=== PATIENT | female | born 1945 | race Caucasian/White ===

== ENCOUNTER 2018-02-02 10:52 | Outpatient (RCR) | payer MEDICARE, OTHER ==
[~2018-02-02 10:52] MED LIST: ALENDRONATE SOD35 MG; ASA81 MG; CALCIUM CITRAT200 MG PO; DESYREL300 MG; DITROPAN 5MG TAB5 MG; FLONASE16 GM; FOSAMAX70 MG PO; FUROSEMIDE20 MG PO; LEVOCETIRIZINE D5 MG; METHADONE10 MG; MIRAPEX PO; OMEPRAZOLE40 MG PO; OXYBUTYNIN CHLOR5 MG PO; PANTOPRAZOLE SO40 MG PO; POTASSIUM CITR10 MEQ PO; SUCRALFATE; TIZANIDINE HCL4 MG PO; TRAMADOL HCL PO; TRAZODONE HCL50 MG PO; Z METHOCARBAMOL; Z MIRAPEX; Z.0.DICYCLOMINE HCL2 PO; Z.0.GEMFIBROZIL600 M PO; Z.0.PROTONIX40 MG; Z.1.HYDROCODON-ACE1; Z.1.LEVOTHYROXINE100 PO; calci
== END 2018-02-03 ==
LOC: PT 10:52
PROVIDERS: ATTEND Specialist
DX: S80.02XD Contusion of left knee, subsequent encounter (principal); M25.562 Pain in left knee; M25.662 Stiffness of left knee, not elsewhere classified; R26.2 Difficulty in walking, not elsewhere classified; M62.81 Muscle weakness (generalized)
CPT/HCPCS: 97010; 97110 ×8; 97161; G8978; G8979

== ENCOUNTER 2018-02-16 11:00 | Outpatient (RCR) | payer MEDICARE, OTHER | END 2018-03-05 | LOC: PT 11:00 | PROVIDERS: ATTEND Specialist | DX: S80.02XD Contusion of left knee, subsequent encounter (principal); M25.562 Pain in left knee; M25.662 Stiffness of left knee, not elsewhere classified; M62.81 Muscle weakness (generalized); R26.2 Difficulty in walking, not elsewhere classified | CPT/HCPCS: 97110 ×6; G8978; G8979 ==

== ENCOUNTER 2018-04-19 12:20 | Outpatient (RCR) | payer MEDICARE, OTHER | END 2018-05-06 | LOC: PT 12:20 | PROVIDERS: ATTEND Specialist | DX: M25.562 Pain in left knee (principal) | CPT/HCPCS: 97110; 97161; G8978; G8979; G8980 ==

== ENCOUNTER → 2018-07-15 | Outpatient (CLI) | payer MEDICARE, OTHER ==
--- NOTE | 2018-07-15 13:11 | Diagnostic Imaging Report ---
Exam: Sacrum 2 views and AP pelvis one view History: Urgent incontinence Comparison: None. Findings: No fracture or malalignment. Bladder stimulator with the lead overlying the right S2 neuroforamen. 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 Mild left hip degenerative arthrosis. Impression: No acute osseous abnormality Right bladder stimulator Scattered degenerative arthrosis of the pelvis Signed by: Dr. Mansoor Coughlin M.D. on 07/15/2018 1:07 PM
== END ==
LOC: RAD 11:56
PROVIDERS: ATTEND Urology
DX: N39.41 Urge incontinence (principal); N39.3 Stress incontinence (female) (male)
CPT/HCPCS: 72170; 72220

== ENCOUNTER 2018-10-05 17:02 | Observation (INO) | payer MEDICARE, OTHER ==
[~2018-10-05] VITALS: Ht 160 cm; Wt 81.9 kg
--- OUTSIDE RECORDS SUMMARY | 2018-10-05 17:07 | XMS REPORT | Continuity of Care Document ---
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 replacement 2006, [facility] [place] Hammer toe operation<sup>22</sup> [id number] left foot, 2003, right foot, 2004 left foot, 2004 right foot. [facility] Hip joint operations<sup>23</sup> [id number] Total right hip replacement 2006, [facility] Hammer toe operation<sup>5</sup> [id number] 5left foot, 2004, right foot, 2004 left foot, 2004 right foot. [facility] Hip joint operations<sup>6</sup> [id number] 6Total right hip replacement 2006, [facility] Hammer toe operation<sup>22</sup> [id number] left foot, 2004, right foot, 2005 left foot, 2005 right foot. [facility] Hip joint operations<sup>23</sup> [id number] Total right hip replacement 2006, [facility]
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
--- OUTSIDE RECORDS SUMMARY | 2018-10-05 17:07 | XMS REPORT | CCD ---
Author Author Auto Generated Organization [facility] [place] Address Unknown Phone Unavailable Care Team Providers Care Child Care Supervisor Name Role Phone Samantha Dunn PP Silvino Morales CP Allergies, Adverse Reactions, Alerts Substance Reaction Status codeine Active Imitrex Active Levaquin Active Neurontin Active penicillin Active Reglan Active Soma Active sulfa drugs Active
--- OUTSIDE RECORDS SUMMARY | 2018-10-05 17:07 | XMS REPORT | CCD ---
Author Author Auto Generated Organization [facility] Address Unknown Phone Unavailable Care Team Providers Care Aml Analyst Name Role Phone Peter Moreland CP Samantha Dunn PP Allergies, Adverse Reactions, Alerts Substance Reaction Status codeine Active Imitrex Active Levaquin Active Neurontin Active penicillin Active Reglan Active Soma Active sulfa drugs Active
--- OUTSIDE RECORDS SUMMARY | 2018-10-05 17:07 | XMS REPORT | CCD ---
Author Author Auto Generated Organization [facility] Address Unknown Phone Unavailable Care Team Providers Care Prehemmer Name Role Phone Samantha Dunn PP Po [...] replacement8 2011 Anthony fundoplication 2001 Operation9 1988 Dxzfvjlfh64 2008 Fxxqribqr43 06/10/2012 00:00:00 Immvvqsvh71 2005 Ksvfdjujw64 1999 Uuqotbzfj91 1998 Gjsrakgse28 2009 Uoazgurox91 2009 Fvmvhxooh51 12/18/2010 00:00:00 Nvqkwsccu46 1999 Wctacgpui60 1970 Zexxvkcst03 2001 Xpfhqfajy51 05/27/2012 00:00:00 Kiufrtyoa79 1996 Pjvzuytie95 2005 1left hand 72666 C Section and lipoma right arm 3neck [...]
--- OUTSIDE RECORDS SUMMARY | 2018-10-05 17:07 | XMS REPORT | CCD ---
Author Author Auto Generated Organization [facility] Address Unknown Phone Unavailable Care Team Providers Care Dish Carrier Name Role Phone Samantha Dunn PP Po [...] replacement8 2011 Anthony fundoplication 2001 Operation9 1988 Wuyybegtm07 2008 Bjhnplpkv84 06/10/2012 00:00:00 Gyllbtkgk13 2005 Dgxipoama19 1999 Thaaifhis72 1998 Brtriubcd99 2009 Lnowjmqvq80 2009 Moqxtkimx20 12/18/2010 00:00:00 Vbkdxxspt85 1999 Mxuswujlq35 1970 Ypvuvxeqh90 2001 Hjwxmunyb30 05/27/2012 00:00:00 Hbozuaitq07 1996 Fvpywhcyn00 2005 1left hand 19317 C Section and lipoma right arm 3neck [...]
--- OUTSIDE RECORDS SUMMARY | 2018-10-05 17:07 | XMS REPORT | Clinical Summary ---
Author Author [facility] Organization [facility] Address Unknown Phone Unavailable Care Team Providers Care Airplane Engineer Name Role Phone Silvino Morales DO PCP Allergies Comments Active Allergy Reactions Severity Noted Date No steristrips Adhesive Tape-Silicones Rash Low 08/04/2018 Duloxetine Rash Low 08/04/2018 Sumatriptan Succinate Rash Low 08/04/2018 Levofloxacin Rash Low 08/04/2018 Pregabalin Rash Low 08/04/2018 Methadone Rash Low 08/04/2018 Polyethylene Glycol 3350 GI 08/04/2018 Intolerance Gabapentin Rash Low 08/04/2018 Penicillins Rash Low 08/04/2018 Carisoprodol Rash Low 08/04/2018 Sulfa (Sulfonamide Rash Low 08/04/2018 Antibiotics) Medications End Date Status Medication Sig Dispensed Refills Start Date Active levothyroxine (SYNTHROID, Take 112 mcg 1 LEVOXYL) 112 mcg tablet by mouth 8 daily. Active traZODone (DESYREL) 300 TAKE 1 3 MG tablet TABLET(S) BY 8 MOUTH AT BEDTIME Active rOPINIRole (REQUIP) 3 MG Take 3 mg by 5 tablet mouth 8 nightly. Active sucralfate (CARAFATE) 1 Take 1 g by 0 gram tablet mouth 4 (four) times a day. Active omeprazole (PriLOSEC) 40 Take 40 mg by 0 MG capsule mouth daily. Active rOPINIRole (REQUIP) 2 MG Take 2 mg by 0 tablet mouth daily before breakfast. Active dicyclomine (BENTYL) 20 Take 20 mg by 0 mg tablet mouth 4 (four) times a day. 2-4 daily Active iron, carbonyl, 45 mg Take 45 mg by 0 tablet mouth daily. Active Take 1 tablet 0 vit,[id number] 29 by mouth mg iron- 1 mg tablet per daily. tablet Active calcium citrate-vitamin Take 1 tablet 0 D3 (CITRACAL+D) 315-200 by mouth 2 mg-unit per tablet (two) times a day. Active aspirin (ECOTRIN) 81 MG Take 81 mg by 0 enteric coated tablet mouth daily. Active melatonin 10 mg tablet Take by 0 mouth. Active Problems Not on file Encounters Care Team Description Date Type Specialty Po Lugo MD Preop testing (Primary Dx) 08/04/2018 Pre-Admit Pre-Admission Testing Testing Appointment Po Lugo MD 08/04/2018 Hospital Radiology Encounter after 10/04/2017 Family History Medical History Relation Name Comments Heart attack Father Hypertension Father Stroke Father Arthritis Mother Hypertension Mother Relation Name Status Comments Father Mother Social History Date Tobacco Use Types Packs/Day Years Used Never Smoker Smokeless Tobacco: Never Used Alcohol Use Drinks/Week oz/Week Comments No Alcohol Habits Answer Date Recorded How often do you have a drink containing alcohol? Never 08/04/2018 How many drinks containing alcohol do you have on Not asked a typical day when you are drinking? How often do you have six or more drinks on one Not asked occasion? Sex Assigned at Date Recorded Not on file Industry Job Start Date Occupation Not on file Not on file Not on file Travel End Travel History Travel Start No recent travel history available. Last Filed Vital Signs Time Taken Vital Sign Reading 08/04/2018 12:22 PM HEAD UP OPERATOR HELPER Blood Pressure 124/66 08/04/2018 12:22 PM HEAD UP OPERATOR HELPER Pulse 56 08/04/2018 12:22 PM HEAD UP OPERATOR HELPER Temperature 36.6 C (97.9 F) 08/04/2018 12:22 PM HEAD UP OPERATOR HELPER Respiratory Rate 16 08/04/2018 12:22 PM HEAD UP OPERATOR HELPER Oxygen Saturation 97% - Inhaled Oxygen - Concentration 08/04/2018 12:22 PM HEAD UP OPERATOR HELPER Weight 77.7 kg (171 lb 3 oz) 08/04/2018 12:22 PM HEAD UP OPERATOR HELPER Height 161.3 cm (5' 3.5") 08/04/2018 12:22 PM HEAD UP OPERATOR HELPER Body Mass Index 29.85 Plan of Treatment Health Maintenance Due Date Last Done Comments BREAST CANCER SCREENING 1993 COLON CANCER SCREENING 1993 SHINGLES VACCINES (1 of 1993 2) PNEUMOCOCCAL 01/06/2008 POLYSACCHARIDE VACCINE AGE 65 AND OVER PNEUMOCOCCAL-13 01/06/2008 INFLUENZA VACCINE 04/06/2018 Procedures Comments Procedure Name Priority Date/Time Associated Diagnosis XR CHEST 2 VW Routine 08/04/2018 Preop testing 1:27 PM HEAD UP OPERATOR HELPER ECG 12-LEAD Routine 08/04/2018 Preop testing 1:02 PM HEAD UP OPERATOR HELPER ESTIMATED GFR Routine 08/04/2018 12:55 PM HEAD UP OPERATOR HELPER URINALYSIS SCREEN AND Routine 08/04/2018 Preop testing MICROSCOPY, WITH REFLEX 12:55 PM HEAD UP OPERATOR HELPER TO CULTURE PARTIAL THROMBOPLASTIN Routine 08/04/2018 Preop testing TIME (PTT) 12:55 PM HEAD UP OPERATOR HELPER PROTHROMBIN TIME WITH INR Routine 08/04/2018 Preop testing 12:55 PM HEAD UP OPERATOR HELPER BASIC METABOLIC PANEL Routine 08/04/2018 Preop testing 12:55 PM HEAD UP OPERATOR HELPER HC COMPLETE BLD COUNT Routine 08/04/2018 Preop testing W/AUTO DIFF 12:55 PM HEAD UP OPERATOR HELPER GRAM STAIN Routine 08/04/2018 12:06 PM HEAD UP OPERATOR HELPER URINE CULTURE Routine 08/04/2018 12:06 PM HEAD UP OPERATOR HELPER after 10/04/2017 Results * XR Chest 2 Vw (08/04/2018 1:27 PM HEAD UP OPERATOR HELPER) Narrative Performed At EXAMINATION:XR CHEST 2 VW [facility] CLINICAL HISTORY:Z01.818 Encounter for other preprocedural examination, preop COMPARISON:December 23, 2011 FINDINGS: The heart size is mildly enlarged. There is an intraspinal electrode projecting over the mid to lower thoracic spine new since previous. There is mild pleural and parenchymal scarring at the left lung base and in the left midlung. These findings are stable since the prior study. There are no acute findings visualized. Mild scoliosis of the thoracic spine is present. Small metallic fragments in the left chest wall are noted. IMPRESSION: 1. No acute findings are visualized. Chronic scarring in the left is noted. 2. Borderline to mild cardiomegaly [id number] Procedure Note Hm Interface, Radiology Results Incoming - 08/04/2018 1:58 PM HEAD UP OPERATOR HELPER EXAMINATION: XR CHEST 2 VW CLINICAL HISTORY: Z01.818 Encounter for other preprocedural examination, preop COMPARISON: December 23, 2011 FINDINGS: The heart size is mildly enlarged. There is an intraspinal electrode projecting over the mid to lower thoracic spine new since previous. There is mild pleural and parenchymal scarring at the left lung base and in the left midlung. These findings are stable since the prior study. There are no acute findings visualized. Mild scoliosis of the thoracic spine is present. Small metallic fragments in the left chest wall are noted. IMPRESSION: 1. No acute findings are visualized. Chronic scarring in the left is noted. 2. Borderline to mild cardiomegaly [id number] Performing Organization Address [facility] Phone Number [employer] [address] [place] [address] * ECG 12 lead (08/04/2018 1:02 PM HEAD UP OPERATOR HELPER) Ventricular rate 64 [facility] Atrial rate 64 [facility] CO interval 140 [facility] QRSD interval 74 [facility] QT interval 404 [facility] QTC interval 416 [facility] P axis 1 81 [facility] QRS axis 1 2 [facility] T wave axis 42 [facility] EKG impression Normal sinus rhythm-Cannot [facility] rule out Anterior infarct , age undetermined-Abnormal ECG-In automated comparison with ECG of 23-DEC-2011 12:05,-No significant change was found- Narrative Performed At Performing Organization Address [facility] Services[facility] Phone Number [employer] [address] [place] [address] * Urinalysis screen and microscopy, with reflex to culture (08/04/2018 12:55 PM HEAD UP OPERATOR HELPER) Specimen site Clean catch [facility] Color, UA Yellow [facility] Appearance, UA Slightly-Cloudy [facility] Specific gravity, UA 1.024 1.001 - 1.035 [facility] pH, UA 5.0 5.0 - 8.5 [facility] Protein, UA Negative Negative [facility] Glucose, UA Negative Negative [facility] Ketones, UA Negative Negative [facility] Bilirubin, UA Negative Negative [facility] Blood, UA Negative Negative [facility] Nitrite, UA Negative Negative [facility] Urobilinogen, UA 2.0 (A) <2.0 [facility] Leukocyte esterase, UA Trace (A) Negative [facility] Epithelial cells, UA Few /HPF [facility] WBC, UA 0-5 0 - 4 /HPF [facility] RBC, UA 0-5 0 - 5 /HPF [facility] Bacteria, UA Trace None seen [facility] Yeast, UA None seen [facility] Yeast with pseudohyphae, None seen [facility] Calcium oxalate crystals, Many [facility] Specimen Urine Performing Organization Address [facility] Phone Number [address] [place] [address] PATHOLOGY AND GENOMIC MEDICINE [address] * Estimated GFR (08/04/2018 12:55 PM HEAD UP OPERATOR HELPER) Estimated GFR 62 mL/min/1.73 m2 [facility] Comment: [facility] CatergoryUnitsInte rpretation G1 >=90 Normal or high G2 60-89Mildly decreased P6y85-93 Mildly to moderately decreased G1j95-24 Moderately to severely decreased G4 15-29Severely decreased G5 <15Kidney failure The eGFR was calculated using the Chronic Kidney Disease Epidemiology Collaboration (CKD-EPI) equation. Interpretation is based on recommendations of the National Kidney Foundation-Kidney Disease Outcomes Quality Initiative (NKF-KDOQI) published in 2014. Specimen Plasma specimen Performing Organization Address [facility] Phone Number [address] [place] [address] PATHOLOGY AND GENOMIC MEDICINE [address] * Partial thromboplastin time, activated (08/04/2018 12:55 PM HEAD UP OPERATOR HELPER) PTT 28.5 23.0 - 36.0 sec [facility] Comment: [facility] PTT therapeutic range for unfractionated heparin is 61.0-112.0 seconds which corresponds to Anti-Xa 0.3-0.7 U/ml. Specimen Blood Performing Organization Address City/[facility]/Zipcode Phone Number [address] [place] [address] PATHOLOGY AND GENOMIC MEDICINE [address] * Prothrombin time with INR (08/04/2018 12:55 PM HEAD UP OPERATOR HELPER) Prothrombin time 12.6 11.5 - 14.5 sec [facility] INR 1.0 [facility] Comment: [facility] The International Normalized Ratio (INR) is a therapeutic monitoring tool for patients who are stable on oral anticoagulant therapy. An INR of 2.0-3.0 is suggested for deep vein thrombosis/pulmonary embolism. Specimen Blood Performing Organization Address [facility] Phone Number [address] [place] [address] PATHOLOGY AND GENOMIC MEDICINE [address] * CBC with platelet and differential (08/04/2018 12:55 PM HEAD UP OPERATOR HELPER) WBC 6.68 4.50 - 11.00 k/uL [facility] RBC 4.13 (L) 4.20 - 5.50 m/uL [facility] HGB 12.6 12.0 - 16.0 g/dL [facility] HCT 38.8 37.0 - 47.0 % [facility] MCV 93.9 82.0 - 100.0 fL [facility] MCH 30.5 27.0 - 34.0 pg [facility] MCHC 32.5 31.0 - 37.0 g/dL [facility] RDW - SD 50.2 37.0 - 55.0 fL [facility] MPV 10.5 8.8 - 13.2 fL [facility] Platelet count 285 150 - 400 k/uL [facility] Nucleated RBC 0.00 /100 WBC [facility] Neutrophils 54.5 39.0 - 69.0 % [facility] Lymphocytes 35.9 25.0 - 45.0 % [facility] Monocytes 7.6 0.0 - 10.0 % [facility] Eosinophils 1.3 0.0 - 5.0 % [facility] Basophils 0.6 0.0 - 1.0 % [facility] Specimen Blood Performing Organization Address [facility] Phone Number [address] [place] [address] PATHOLOGY AND GENOMIC MEDICINE [address] * Basic metabolic panel (08/04/2018 12:55 PM HEAD UP OPERATOR HELPER) Sodium 138 135 - 148 mEq/L [facility] Potassium 4.1 3.5 - 5.0 mEq/L [facility] Chloride 100 98 - 112 mEq/L [facility] CO2 28 24 - 31 mEq/L [facility] Anion gap 10@ANIO 7 - 15 mEq/L [facility] BUN 18 8 - 23 mg/dL [facility] Creatinine 0.90 0.50 - 0.90 mg/dL [facility] Glucose 85 65 - 99 mg/dL [facility] Calcium 10.2 8.8 - 10.2 mg/dL [facility] Specimen Plasma specimen Performing Organization Address [facility] Phone Number [address] [place] [address] PATHOLOGY AND GENOMIC MEDICINE [address] * Gram stain (08/04/2018 12:06 PM HEAD UP OPERATOR HELPER) Gram stain result No WBC's or organisms seen. [facility] Comment: HOSPITAL Specimen Information Specimen Source: Urine Specimen Site: Clean catch Specimen Urine Performing Organization Address City/State/Zipcode Phone Number [facility] [address] [place] [address] PATHOLOGY AND GENOMIC MEDICINE [address] * Urine culture (08/04/2018 12:06 PM HEAD UP OPERATOR HELPER) Urine culture isolate Mixed kwame 10-5 col/cc [facility] Comment: HOSPITAL Specimen Information Specimen Source: Urine Specimen Site: Clean catch Specimen Urine Performing Organization Address City/State/Zipcode Phone Number [facility] OF [address] [place] [address] PATHOLOGY AND GENOMIC MEDICINE [facility] [address] [place] [address] HOSPITAL after 10/04/2017 Insurance Payer Benefit Subscriber ID Type Phone Address Plan / Group AETNA MEDICARE AETNA xxxxxxxx HMO MEDICARE HMO/PPO [facility] Advance Directives Patient has advance care planning documents on file. For more information, chloe torres contact: Evan Amaya [address] [place] [address]
--- OUTSIDE RECORDS SUMMARY | 2018-10-05 17:07 | XMS REPORT | CCD ---
Author Author Auto Generated Organization [facility] Outpatient Imaging - [place] Address Unknown Phone Unavailable Care Team Providers Care Traffic Chief Name Role Phone Samantha Dunn PP Silvino Morales CP Allergies, Adverse Reactions, Alerts Substance Reaction Status codeine Active Imitrex Active Levaquin Active Neurontin Active penicillin Active Reglan Active Soma Active sulfa drugs Active
--- OUTSIDE RECORDS SUMMARY | 2018-10-05 17:07 | XMS REPORT | CCD ---
Author Author Auto Generated Organization [facility] Outpatient Imaging - [place] Address Unknown Phone Unavailable Care Team Providers Care Management Advisor Name Role Phone Peter Moreland CP Samantha Dunn PP Allergies, Adverse Reactions, Alerts Substance Reaction Status codeine Active Imitrex Active Levaquin Active Neurontin Active penicillin Active Reglan Active Soma Active sulfa drugs Active
--- OUTSIDE RECORDS SUMMARY | 2018-10-05 17:07 | XMS REPORT | CCD ---
Author Author Auto Generated Organization [facility] Outpatient Imaging - [place] Address Unknown Phone Unavailable Care Team Providers Care Detention Attendant Name Role Phone Samantha Dunn PP Silvino Morales CP Allergies, Adverse Reactions, Alerts Substance Reaction Status codeine Active Imitrex Active Levaquin Active Neurontin Active penicillin Active Reglan Active Soma Active sulfa drugs Active
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
--- OUTSIDE RECORDS SUMMARY | 2018-10-05 17:08 | XMS REPORT | Summary of Care ---
Author Organization Unknown Address Unknown Phone Unavailable Care Team Providers Care Dry Cleaning Teacher Name Role Phone Samantha Dunn PCP Encounter [facility] Lylar_ashlie([facility]) [id number] Date(s): 06/07/14 - 06/07/14 [facility] Outpatient Imaging [address] [address] [place] Discharge Disposition: Home Physician Attending: Ladarius Schwarz MD Reason for Visit 789.0 - ABDOMINAL PAIN Problem List Condition Effective Dates Status Health Status Informant Back pain(Confirmed) Active Diverticulosis of Resolved colon(Confirmed) Dysphagia(Confirmed) Active GERD - Active Gastro-esophageal reflux disease(Confirmed) Allergies, Adverse Reactions, Alerts Substance Reaction Severity Status baclofen Active codeine Active Imitrex Active Levaquin Active Neurontin Active penicillin Active Reglan Active Soma Active sulfa drugs Active Medications No data available for this section Medications Administered During Your Visit No data available for this section Immunizations No data available for this section
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
--- OUTSIDE RECORDS SUMMARY | 2018-10-05 17:08 | XMS REPORT | Summary of Care ---
Author Organization Unknown Address Unknown Phone Unavailable Care Team Providers Care Circular Stuffer Name Role Phone Samantha Dunn PCP Encounter HQ Lylar_ashlie([facility]) [phone] Date(s): 12/13/13 - 12/13/13 [facility] Outpatient Imaging [address] [address]- [facility] Discharge Disposition: Home Physician Attending: Ladarius Schwarz Reason for Visit 722.81 - POSTLAMINECT SY Problem List Condition Effective Dates Status Health [...]
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
--- OUTSIDE RECORDS SUMMARY | 2018-10-05 17:08 | XMS REPORT | CCD ---
Author Author Auto [employer] Organization [facility] Address Unknown Phone Unavailable Care Team Providers Care Position Clerk Name Role Phone Samantha Dunn PP Po [...] replacement8 2011 Anthony fundoplication 2001 Operation9 1988 Zjtvquigs08 2008 Xltbikowu75 06/10/2012 00:00:00 Rystyhala87 2005 Fugxsorrx50 1999 Zftfdujuu43 1998 Nffubcmrr15 2009 Qgjnpffaw20 2009 Vqrbtnxlp13 12/18/2010 00:00:00 Dkzrzoauk34 1999 Xhfeswlrh07 1970 Bayvjfeus63 2001 Rclgumaxm07 05/27/2012 00:00:00 Lxommmmzd15 1996 Xhvuccido96 2005 1left hand 26791 C Section and lipoma right arm 3neck [...]
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
--- OUTSIDE RECORDS SUMMARY | 2018-10-05 17:09 | XMS REPORT ---
Author [facility] Address Unknown Phone Unavailable Care Team Providers Care Form Grader Operator Name Role Phone BOUCHRA BRADSHAW Unavailable Unavailable Payers Payer Name Policy Type Policy Number Effective Date Expiration Date Problems This patient has no known problems. Allergies, Adverse Reactions, Alerts Allergy Name Allergy Type Status Severity Reaction(s) Onset Date Inactive Date Treating Clinician Comments Penicillins DA Active [facility] 2017-11-20 00:00:00 Sulfa (Sulfonamide Antibiotics) DA Active NH 2017-11-20 00:00:00 codeine DA Active NH 2017-11-20 00:00:00 carisoprodol DA Active NH 2017-11-20 00:00:00 baclofen DA Active NH 2017-11-20 00:00:00 adhesive DA Active NH 2017-11-20 00:00:00 sumatriptan DA Active NH 2017-11-20 00:00:00 gabapentin DA Active NH 2017-11-20 00:00:00 methadone DA Active U 2017-11-20 00:00:00 levofloxacin DA Active U 2017-11-20 00:00:00 polyethylene glycol 3350 DA Active NH 2017-11-20 00:00:00 pregabalin DA Active NH 2017-11-20 00:00:00 Medications This patient has no known medications. Results Test Description Test Time Test Comments Text Results Atomic Results Result Comments PELVIS AP 1-2 VIEWS 2018-07-15 13:04:[address] [address] Patient Name: JOSEPH SAMANIEGO MR #: [id number] : 1945 Age/Sex: 73/F Req #: [id number] Adm Physician: Ordered by: BOUCHRA BRADSHAW MD Report #: [id number] Location: RAD Room/Bed: Procedure: [id number] DX/PELVIS AP 1-2 VIEWS Exam Date: 07/15/18 Exam Time: 1224 REPORT STATUS: Signed Exam: Sacrum 2 views and AP pelvis one view Hi story: Urgent incontinence Comparison: None. Findings: No fracture or malalignment. Bladder stimulator with the lead overlying the right S2 neuroforamen. 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 Mild left hip degenerative arthrosis. Impression: No acute osseous abnormality Right bladder stimulator Scattered degenerative arthrosis of the pelvis Signed by: Dr. Lady Casanova M.D. on 07/15/2018 1:07 PM Dictated By: LADY CASANOVA MD Juany ctronically Signed By: LADY CASANOVA MD on 07/15/18 1307 Transcribed By: YESSI on 07/15/18 1307 COPY TO: BOUCHRA BRADSHAW MD SACRUM X-RAY 2018-07-15 13:04:00 [place] [address] Patient Name: JOSEPH SAMANIEGO MR #: [id number] : 1945 Age/Sex: 73/F Req #: [id number] Adm Physician: Ordered by: BOUCHRA BRADSHAW MD Report #: [id number] Location: RAD Room/Bed: Procedure: [id number] DX/SACRUM X-RAY Exam Date: 07/15/18 Exam Time: 1224 REPORT STATUS: Signed Exam: Sacrum 2 views and AP pelvis one view History: Urgent incontinence Comparison: None. Findings: No fracture or malalignment. Bladder stimulator with the lead overlying the right S2 neuroforamen. 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 Mild left hip degenerative arthrosis. Impression: No acute osseous abnormality Right bladder stimulator Scattered degenerative arthrosis of the pelvis Signed by: Dr. Lady Casanova M.D. on 07/15/2018 1:07 PM Dictated By: LADY CASANOVA MD 1309 Transcribed By: YESSI on 07/15/18 1304 COPY TO: BOUCHRA BRADSHAW MD
[2018-10-05] MEDS ORDERED: ENOXAPARIN INJ 80 MG/0.8 ML SYR SC ONE (18:45)
[2018-10-05] MEDS ORDERED: CYCLOBENZAPRINE10 MG PO (18:47)
[2018-10-05] MEDS ORDERED: TRAZODONE HCL300 MG PO (18:47)
[2018-10-05] MEDS ORDERED: DICYCLOMINE HCL20 MG PO (18:47)
[2018-10-05] MEDS ORDERED: SUCRALFATE1 GM PO (18:47)
[2018-10-05] MEDS ORDERED: ROPINIROLE HCL3 MG PO (18:47)
--- NOTE | 2018-10-05 18:48 | Diagnostic Imaging Report ---
EXAM: XR CHEST 1 VIEW DATE: 10/05/2018 5:58 PM INDICATION: Pulmonary embolus COMPARISON: None FINDINGS: Lines and Tubes: None Heart and Mediastinum: No acute cardiomediastinal findings. Lungs and Pleura: No significant pleural effusion, pneumothorax, or focal consolidation. Bones and Soft Tissues: Spinal stimulator wires. IMPRESSION: 1. No acute cardiopulmonary findings. Signed by: Dr. Johnnie Leung MD on 10/05/2018 6:45 PM
[2018-10-05] MEDS ORDERED: ASPIRIN 81 MG CHEW TAB PO ONE (19:00)
[2018-10-05 19:02] LABS: BASOPHILS % 0.6 % (0.0-1.0); EOSINOPHILS # (AUTO) 0.1 (0.0-0.4); EOSINOPHILS % 1.5 % (0.0-6.0); HEMATOCRIT 35.7 % (34.2-44.1); HEMOGLOBIN 11.6 g/dL (12.0-16.0); LYMPHOCYTES # (AUTO) 2.3 (1.0-3.2); LYMPHOCYTES % 34.4 % (18.0-39.1); MEAN CORPUSCULAR HEMOGLOBIN 31.1 pg (28-32); MEAN CORPUSCULAR HGB CONC 32.5 g/dL (31-35); MEAN CORPUSCULAR VOLUME 95.7 fL (81-99); MONOCYTES # (AUTO) 0.5 (0.2-0.8); MONOCYTES % 7.9 % (4.4-11.3); NEUTROPHILS # (AUTO) 3.7 (2.1-6.9); NEUTROPHILS % 55.3 % (38.7-80.0); PLATELET COUNT 252 x10e3/uL (140-360); RED BLOOD COUNT 3.73 x10e6/uL (3.6-5.1); RED CELL DISTRIBUTION WIDTH 15.7 % (11.7-14.4)
--- OUTSIDE RECORDS SUMMARY | 2018-10-05 19:03 | XMS REPORT | Clinical Summary ---
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 Active Take 1 tablet 0 vit,[id number] 29 by mouth mg iron- 1 mg [...] Taken Vital Sign Reading 08/04/2018 12:22 PM ROUTE SALES REPRESENTATIVE Blood Pressure 124/66 08/04/2018 12:22 PM ROUTE SALES REPRESENTATIVE Pulse 56 08/04/2018 12:22 PM ROUTE SALES REPRESENTATIVE Temperature 36.6 C (97.9 F) 08/04/2018 12:22 PM ROUTE SALES REPRESENTATIVE Respiratory Rate 16 08/04/2018 12:22 PM ROUTE SALES REPRESENTATIVE Oxygen Saturation 97% - Inhaled Oxygen - Concentration 08/04/2018 12:22 PM ROUTE SALES REPRESENTATIVE Weight 77.7 kg (171 lb 3 oz) 08/04/2018 12:22 PM ROUTE SALES REPRESENTATIVE Height 161.3 cm (5' 3.5") 08/04/2018 12:22 PM ROUTE SALES REPRESENTATIVE Body Mass Index 29.85 Plan of Treatment Health Maintenance Due Date Last Done Comments BREAST CANCER SCREENING 1993 COLON CANCER SCREENING 1993 SHINGLES VACCINES (1 of 1993 2) PNEUMOCOCCAL 01/06/2008 POLYSACCHARIDE VACCINE AGE 65 AND OVER PNEUMOCOCCAL-13 01/06/2008 INFLUENZA VACCINE 04/06/2018 Procedures Comments Procedure Name Priority Date/Time Associated Diagnosis XR CHEST 2 VW Routine 08/04/2018 Preop testing 1:27 PM ROUTE SALES REPRESENTATIVE ECG 12-LEAD Routine 08/04/2018 Preop testing 1:02 PM ROUTE SALES REPRESENTATIVE ESTIMATED GFR Routine 08/04/2018 12:55 PM ROUTE SALES REPRESENTATIVE URINALYSIS SCREEN AND Routine 08/04/2018 Preop testing MICROSCOPY, WITH REFLEX 12:55 PM ROUTE SALES REPRESENTATIVE TO CULTURE PARTIAL THROMBOPLASTIN Routine 08/04/2018 Preop testing TIME (PTT) 12:55 PM ROUTE SALES REPRESENTATIVE PROTHROMBIN TIME WITH INR Routine 08/04/2018 Preop testing 12:55 PM ROUTE SALES REPRESENTATIVE BASIC METABOLIC PANEL Routine 08/04/2018 Preop testing 12:55 PM ROUTE SALES REPRESENTATIVE HC COMPLETE BLD COUNT Routine 08/04/2018 Preop testing W/AUTO DIFF 12:55 PM ROUTE SALES REPRESENTATIVE GRAM STAIN Routine 08/04/2018 12:06 PM ROUTE SALES REPRESENTATIVE URINE CULTURE Routine 08/04/2018 12:06 PM ROUTE SALES REPRESENTATIVE after 10/04/2017 Results * XR Chest 2 Vw (08/04/2018 1:27 PM ROUTE SALES REPRESENTATIVE) Narrative Performed At EXAMINATION:XR CHEST 2 VW [...] is noted. 2. Borderline to mild cardiomegaly [id number] Procedure Note Hm Interface, Radiology Results Incoming - 08/04/2018 1:58 PM ROUTE SALES REPRESENTATIVE EXAMINATION: XR CHEST 2 VW CLINICAL HISTORY: [...] is noted. 2. Borderline to mild cardiomegaly [id number] Performing Organization Address [facility] Cent[facility]ode Phone Number [employer] [address] [place] [address] * ECG 12 lead (08/04/2018 1:02 PM ROUTE SALES REPRESENTATIVE) Ventricular rate 64 [facility] Atrial rate 64 [facility] OR interval 140 [facility] QRSD interval 74 [...] found- Narrative Performed At Performing Organization Address [facility] Center[facility]n Phone Number [employer] [address] [place] [address] * Urinalysis screen and microscopy, with reflex to culture (08/04/2018 12:55 PM ROUTE SALES REPRESENTATIVE) Specimen site Clean catch [facility] Color, UA Yellow [facility] Appearance, UA Slightly-Cloudy [facility] Specific gravity, UA 1.024 1.001 - 1.035 [facility] pH, UA 5.0 5.0 - 8.5 [facility] Protein, UA Negative Negative [facility] Glucose, UA Negative Negative [facility] Ketones, UA Negative Negative [facility] Bilirubin, UA Negative Negative [facility] Blood, UA Negative Negative [facility] Nitrite, UA Negative Negative [facility] Urobilinogen, UA 2.0 (A) <2.0 [facility] Leukocyte esterase, UA Trace (A) Negative [facility] Epithelial cells, UA Few /HPF [facility] WBC, UA 0-5 0 - 4 /HPF [facility] RBC, UA 0-5 0 - 5 /HPF [facility] Bacteria, UA Trace None seen [facility] Yeast, UA None seen [facility] Yeast with pseudohyphae, None seen [facility] Calcium oxalate crystals, Many [facility] Specimen Urine Performing Organization Address [facility] Phone Number [address] [place] [address] PATHOLOGY AND GENOMIC MEDICINE [address] * Estimated GFR (08/04/2018 12:55 PM ROUTE SALES REPRESENTATIVE) Estimated GFR 62 mL/min/1.73 m2 [facility] Comment: [facility] CatergoryUnitsInte rpretation G1 >=90 Normal or high G2 60-89Mildly decreased [id number] Mildly to moderately decreased [id number] Moderately to severely decreased G4 15-29Severely decreased G5 <15Kidney failure The eGFR was calculated using the Chronic Kidney Disease Epidemiology Collaboration (CKD-EPI) equation. Interpretation is based on recommendations of the National Kidney Foundation-Kidney Disease Outcomes Quality Initiative (NKF-KDOQI) published in 2014. Specimen Plasma specimen Performing Organization Address [facility] Centercode Phone Number [address] [place] [address] PATHOLOGY AND GENOMIC MEDICINE [address] * Partial thromboplastin time, activated (08/04/2018 12:55 PM ROUTE SALES REPRESENTATIVE) PTT 28.5 23.0 - 36.0 sec [facility] Comment: [facility] PTT therapeutic range for unfractionated heparin is 61.0-112.0 seconds which corresponds to Anti-Xa 0.3-0.7 U/ml. Specimen Blood Performing Organization Address City/[facility]/Zipcode Phone Number [address] [place] [address] PATHOLOGY AND GENOMIC MEDICINE [address] * Prothrombin time with INR (08/04/2018 12:55 PM ROUTE SALES REPRESENTATIVE) Prothrombin time 12.6 11.5 - 14.5 sec [facility] INR 1.0 [facility] Comment: [facility] The International Normalized Ratio (INR) is a therapeutic monitoring tool for patients who are stable on oral anticoagulant therapy. An INR of 2.0-3.0 is suggested for deep vein thrombosis/pulmonary embolism. Specimen Blood Performing Organization Address [facility] Phone Number [address] [place] [address] PATHOLOGY AND GENOMIC MEDICINE [address] * CBC with platelet and differential (08/04/2018 12:55 PM ROUTE SALES REPRESENTATIVE) WBC 6.68 4.50 - 11.00 k/uL [facility] RBC 4.13 (L) 4.20 - 5.50 m/uL [facility] HGB 12.6 12.0 - 16.0 g/dL [facility] HCT 38.8 37.0 - 47.0 % [facility] MCV 93.9 82.0 - 100.0 fL [facility] MCH 30.5 27.0 - 34.0 pg [facility] MCHC 32.5 31.0 - 37.0 g/dL [facility] RDW - SD 50.2 37.0 - 55.0 fL [facility] MPV 10.5 8.8 - 13.2 fL [facility] Platelet count 285 150 - 400 k/uL [facility] Nucleated RBC 0.00 /100 WBC [facility] Neutrophils 54.5 39.0 - 69.0 % [facility] Lymphocytes 35.9 25.0 - 45.0 % [facility] Monocytes 7.6 0.0 - 10.0 % [facility] Eosinophils 1.3 0.0 - 5.0 % [facility] Basophils 0.6 0.0 - 1.0 % [facility] Specimen Blood Performing Organization Address [facility] Centercode Phone Number [address] [place] [address] PATHOLOGY AND GENOMIC MEDICINE [address] * Basic metabolic panel (08/04/2018 12:55 PM ROUTE SALES REPRESENTATIVE) Sodium 138 135 - 148 mEq/L [facility] Potassium 4.1 3.5 - 5.0 mEq/L [facility] Chloride 100 98 - 112 mEq/L [facility] CO2 28 24 - 31 mEq/L [facility] Anion gap 10@ANIO 7 - 15 mEq/L [facility] BUN 18 8 - 23 mg/dL [facility] Creatinine 0.90 0.50 - 0.90 mg/dL [facility] Glucose 85 65 - 99 mg/dL [facility] Calcium 10.2 8.8 - 10.2 mg/dL [facility] Specimen Plasma specimen Performing Organization Address [facility] Phone Number [address] [place] [address] PATHOLOGY AND GENOMIC MEDICINE [address] * Gram stain (08/04/2018 12:06 PM ROUTE SALES REPRESENTATIVE) Gram stain result No WBC's or organisms seen. [facility] Comment: HOSPITAL Specimen Information Specimen Source: Urine Specimen Site: Clean catch Specimen Urine Performing Organization Address City/State/Zipcode Phone Number [facility] DEPARTMENT [address] [place] [address] PATHOLOGY AND GENOMIC MEDICINE [address] * Urine culture (08/04/2018 12:06 PM ROUTE SALES REPRESENTATIVE) Urine culture isolate Mixed kwame 10-5 col/cc [facility] Comment: HOSPITAL Specimen Information Specimen Source: Urine Specimen Site: Clean catch Specimen Urine Performing Organization Address City/State/Zipcode Phone Number [facility] DEPARTMENT OF [address] [place] [address] PATHOLOGY AND GENOMIC MEDICINE [facility] [address] [place] [address] HOSPITAL after 10/04/2017 Insurance Payer Benefit Subscriber ID Type Phone Address Plan / Group AET[employer] MEDICARE AETNA xxxxxxxx HMO MEDICARE HMO/PPO [facility] Advance Directives Patient has advance care planning documents on file. For more information, chloe torres contact: Evan Amaya [address] [place] [address]
--- NOTE | 2018-10-05 19:10 | NUR ---
RECIEVED REPORT FROM FRIDA HARDEN DAY SHIFT NURSE.
[2018-10-05 19:16] LABS: INR 0.87; PROTHROMBIN TIME 12.6 seconds (11.9-14.5)
[2018-10-05 19:17] LABS: PARTIAL THROMBOPLASTIN TIME 29.1 seconds (23.8-35.5)
[2018-10-05 19:23] LABS: CREATINE KINASE 121 IU/L (29-168)
[2018-10-05 19:25] LABS: ALANINE AMINOTRANSFERASE 15 IU/L (0-55); ALBUMIN 3.9 g/dL (3.5-5.0); ALBUMIN/GLOBULIN RATIO 1.7 (0.8-2.0); ALKALINE PHOSPHATASE 105 IU/L (40-150); ANION GAP 13.6 mmol/L (8-16); BLOOD UREA NITROGEN 11 mg/dL (7-26); BUN/CREATININE RATIO 13 (6-25); CALCIUM 8.9 mg/dL (8.4-10.2); CARBON DIOXIDE 24 mmol/L (22-29); CHLORIDE 101 mmol/L (98-107); CREATININE, SERUM 0.84 mg/dL (0.57-1.11); EST GLOMERULAR FILTRATION RATE > 60 ML/MIN (60-); GLUCOSE 92 mg/dL (74-118); POTASSIUM 3.6 mmol/L (3.5-5.1); SODIUM 135 mmol/L (136-145)
[2018-10-05] MEDS ORDERED: ENOXAPARIN SOD INJ 40 MG/0.4 ML SYR SC SCH (21:00)
[2018-10-05 21:42] VITALS: BP 155/74
[2018-10-05] MEDS ORDERED: MELATONIN3 MG PO (22:15)
[2018-10-06 01:29] VITALS: BP 155/74
[2018-10-06 03:45] LABS: ALANINE AMINOTRANSFERASE 11 IU/L (0-55); ALBUMIN 3.3 g/dL (3.5-5.0); ALBUMIN/GLOBULIN RATIO 1.7 (0.8-2.0); ALKALINE PHOSPHATASE 87 IU/L (40-150); ANION GAP 12.7 mmol/L (8-16); BLOOD UREA NITROGEN 9 mg/dL (7-26); BUN/CREATININE RATIO 12 (6-25); CALCIUM 8.4 mg/dL (8.4-10.2); CARBON DIOXIDE 23 mmol/L (22-29); CHLORIDE 103 mmol/L (98-107); CREATININE, SERUM 0.74 mg/dL (0.57-1.11); EST GLOMERULAR FILTRATION RATE > 60 ML/MIN (60-); GLUCOSE 84 mg/dL (74-118); POTASSIUM 3.7 mmol/L (3.5-5.1); SODIUM 135 mmol/L (136-145)
[2018-10-06 04:07] LABS: CREATINE KINASE 83 IU/L (29-168)
[2018-10-06 05:00] LABS: BASOPHILS # (AUTO) 0.1 (0.0-0.1); BASOPHILS % 0.8 % (0.0-1.0); EOSINOPHILS # (AUTO) 0.1 (0.0-0.4); EOSINOPHILS % 1.9 % (0.0-6.0); HEMATOCRIT 32.4 % (34.2-44.1); HEMOGLOBIN 10.6 g/dL (12.0-16.0); LYMPHOCYTES # (AUTO) 2.6 (1.0-3.2); LYMPHOCYTES % 40.2 % (18.0-39.1); MEAN CORPUSCULAR HEMOGLOBIN 30.6 pg (28-32); MEAN CORPUSCULAR HGB CONC 32.7 g/dL (31-35); MEAN CORPUSCULAR VOLUME 93.6 fL (81-99); MONOCYTES # (AUTO) 0.5 (0.2-0.8); MONOCYTES % 8.4 % (4.4-11.3); NEUTROPHILS # (AUTO) 3.1 (2.1-6.9); NEUTROPHILS % 48.5 % (38.7-80.0); PLATELET COUNT 225 x10e3/uL (140-360); RED BLOOD COUNT 3.46 x10e6/uL (3.6-5.1); RED CELL DISTRIBUTION WIDTH 15.7 % (11.7-14.4)
[2018-10-06 06:47] VITALS: BP 129/63
--- NOTE | 2018-10-06 07:00 | NUR ---
RCD PT AT BED PT IS ALERT AND ORIENTED ASSESSMENT DONE PT RESTING ON BED IV PATENT FAMILY AT BED SIDE BED LOW AND LOCKED CALL LIGHT IN REACH
[2018-10-06 08:00] VITALS: BP 134/65
[2018-10-06] MEDS ORDERED: ENOXAPARIN SOD INJ 40 MG/0.4 ML SYR SC SCH (09:00)
[2018-10-06] MEDS ORDERED: SUCRALFATE 1 GM TAB PO SCH (10:00)
[2018-10-06] MEDS ORDERED: DICYCLOMINE HCL 20 MG TAB PO SCH (10:00)
[2018-10-06] MEDS ORDERED: PANTOPRAZOLE SOD 40 MG TABEC PO SCH (10:00)
--- NOTE | 2018-10-06 10:15 | NUR ---
PAGED DR CALZADA TO GET THE CLARIFICATION REGARDING DISCHARGE
--- NOTE | 2018-10-06 11:19 | NUR ---
DR CALZADA RETURNED THE CALL HE SAID DONT DISCHARGE THE PT HE WANTED TO SEE THE PT AND COLLECT THE REPORT FROM [facility] AND EVALUATE THE REPORT
[2018-10-06 11:28] LABS: CREATINE KINASE 82 IU/L (29-168)
[2018-10-06 11:59] VITALS: BP 133/65
[2018-10-06 12:06] VITALS: BP 133/65
--- NOTE | 2018-10-06 12:39 | NUR ---
GOT THE TELEPHONE MESSAGE FRO DR BRAMBILA PT CAN GO HOME AND FOLLOW UP WITH PCP BECAUSE THE CT REPORT FROM [facility] STILL PENDING
[2018-10-06] MEDS ORDERED: XARELTO10 MG PO (12:45)
[2018-10-06] MEDS ORDERED: XARELTO20 MG PO (12:46)
--- NOTE | 2018-10-06 13:17 | NUR ---
PT WENT HOME IN SAFE CONDITION WITH HER
--- NOTE | 2018-10-06 14:28 | Consultation ---
DATE OF CONSULTATION: October 06, 2018 PULMONARY CONSULTATION REASON FOR CONSULT: Patient was called by her primary care physician to go to the emergency room for PE. HPI: Ms. Murrieta is a 73-year-old female. She had a CTA of the chest at an outside facility, which was verbally reported to Dr. Morales that the patient has pulmonary embolism. There is no records, which we are still waiting for the records of the CT scan. She is denying any complaints of chest pain. She has no shortness of breath now. REVIEW OF SYSTEMS: Negative except as in HPI. GENERAL: Denies any fever or chills. HEENT: Denies any head trauma. ENT: Denies any earache. CV: Denies any chest pain. PAST MEDICAL HISTORY: Hypothyroidism and acid reflux. PAST SURGICAL HISTORY: None. FAMILY AND SOCIAL HISTORY: She does not smoke. Does not drink. PHYSICAL EXAMINATION VITAL SIGNS: Temperature 98.1, pulse of 62, blood pressure 133/65, respiratory rate 18, O2 sat 96%. HEENT: Head is atraumatic and normocephalic. NECK: Supple. CHEST: Clear to auscultation bilaterally. No wheezing. HEART: S1 and S2 audible. ABDOMEN: Soft. EXTREMITIES: No pedal edema. NEUROLOGIC: Awake and alert. LABS: White count of 6.4, hemoglobin 10.6, and platelets 225,000. Chemistry is within normal limits. INR is 1.87. D-dimer 1.66. ASSESSMENT AND PLAN: Ms. Murrieta is a 73-year-old female with reported pulmonary embolism. There is no CTA here. CTA was done at [facility]. We are waiting for the report. PLAN: Agree with the Roseanne at this point, and possibly can go home. I am waiting for the report to see the location and extent of PE. Job#: [id number] CLEMENT
[2018-10-06] MEDS ORDERED: TRAZODONE HCL 50 MG TAB PO SCH (21:00)
[2018-10-06] MEDS ORDERED: CYCLOBENZAPRINE HCL 10 MG TAB PO SCH (21:00)
[2018-10-06] MEDS ORDERED: MELATONIN 5 MG TABLET PO SCH (21:00)
[2018-10-06] MEDS ORDERED: MELATONIN 3 MG TAB PO SCH (21:00)
[2018-10-06] MEDS ORDERED: ROPINIROLE HCL 2 MG TAB PO SCH (21:00)
[2018-10-06] MEDS ORDERED: TRAZODONE HCL 300 MG PO SCH (21:00)
[2018-10-06] MEDS ORDERED: ROPINIROLE HCL 3 MG PO SCH (21:00)
[2018-10-07] MEDS ORDERED: LEVOTHYROXINE SODIUM 112 MCG TAB PO SCH (06:00)
[2018-10-07] MEDS ORDERED: LEVOTHYROXINE SODIUM 100 MCG TAB PO SCH (09:00)
== END 2018-10-06 13:17 | disposition home or self-care (01) ==
LOC: ER 17:02 → INTOOBSV 19:00 → ERHOLD 19:00 → MED/SURG2 21:43
PROVIDERS: ADMIT Internal Medicine; ATTEND Internal Medicine
DX: I26.99 Other pulmonary embolism without acute cor pulmonale (principal); D64.9 Anemia, unspecified; K21.9 Gastro-esophageal reflux disease without esophagitis; Z88.5 Allergy status to narcotic agent; Z88.0 Allergy status to penicillin; Z88.2 Allergy status to sulfonamides; Z88.8 Allergy status to other drugs, medicaments and biological substances; Z91.048 Other nonmedicinal substance allergy status
CPT/HCPCS: 36415 ×2; 71045; 80053 ×2; 82550 ×2; 82553 ×2; 84484 ×2; 85025 ×2; 85379; 85610; 85730; 93005; 99284; G0378 ×2; J1650 ×2; S0164

== ENCOUNTER 2018-11-08 12:15 | Emergency (ER) | payer MEDICARE, OTHER ==
[~2018-11-08] VITALS: Ht 160 cm; Wt 81.6 kg
[~2018-11-08 12:15] MED LIST changes: +CYCLOBENZAPRINE10 MG PO; +DICYCLOMINE HCL20 MG PO; +MELATONIN3 MG PO; +ROPINIROLE HCL3 MG PO; +SUCRALFATE1 GM PO; +TRAZODONE HCL300 MG PO; +XARELTO10 MG PO; +XARELTO20 MG PO
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
--- OUTSIDE RECORDS SUMMARY | 2018-11-08 12:21 | XMS REPORT | Clinical Summary ---
Author Author [facility] Address Unknown Phone Unavailable Care Team Providers Care Banjo Repairer Name Role Phone Silvino Morales DO PCP [...] mouth daily. Active Take 1 tablet 0 vit,[id number] 29 by mouth mg iron- 1 mg [...] Lugo MD 08/04/2018 Hospital Radiology Encounter after 11/07/2017 Family History Medical History Relation Name Comments [...] Taken Vital Sign Reading 08/04/2018 12:22 PM HIDE WORKER Blood Pressure 124/66 08/04/2018 12:22 PM HIDE WORKER Pulse 56 08/04/2018 12:22 PM HIDE WORKER Temperature 36.6 C (97.9 F) 08/04/2018 12:22 PM HIDE WORKER Respiratory Rate 16 08/04/2018 12:22 PM HIDE WORKER Oxygen Saturation 97% - Inhaled Oxygen - Concentration 08/04/2018 12:22 PM HIDE WORKER Weight 77.7 kg (171 lb 3 oz) 08/04/2018 12:22 PM HIDE WORKER Height 161.3 cm (5' 3.5") 08/04/2018 12:22 PM HIDE WORKER Body Mass Index 29.85 Plan of Treatment Health Maintenance Due Date Last Done Comments BREAST CANCER SCREENING 1993 COLON CANCER SCREENING 1993 SHINGLES VACCINES (#1) 1993 65+ PNEUMOCOCCAL VACCINE 01/06/2008 (1 of 2 - PCV13) PNEUMOCOCCAL 01/06/2008 POLYSACCHARIDE VACCINE AGE 65 AND OVER INFLUENZA VACCINE 04/06/2018 Procedures Comments Procedure Name Priority Date/Time Associated Diagnosis XR CHEST 2 VW Routine 08/04/2018 Preop testing 1:27 PM HIDE WORKER ECG 12-LEAD Routine 08/04/2018 Preop testing 1:02 PM HIDE WORKER ESTIMATED GFR Routine 08/04/2018 12:55 PM HIDE WORKER URINALYSIS SCREEN AND Routine 08/04/2018 Preop testing MICROSCOPY, WITH REFLEX 12:55 PM HIDE WORKER TO CULTURE PARTIAL THROMBOPLASTIN Routine 08/04/2018 Preop testing TIME (PTT) 12:55 PM HIDE WORKER PROTHROMBIN TIME WITH INR Routine 08/04/2018 Preop testing 12:55 PM HIDE WORKER BASIC METABOLIC PANEL Routine 08/04/2018 Preop testing 12:55 PM HIDE WORKER HC COMPLETE BLD COUNT Routine 08/04/2018 Preop testing W/AUTO DIFF 12:55 PM HIDE WORKER GRAM STAIN Routine 08/04/2018 12:06 PM HIDE WORKER URINE CULTURE Routine 08/04/2018 12:06 PM HIDE WORKER after 11/07/2017 Results * XR Chest 2 Vw (08/04/2018 1:27 PM HIDE WORKER) Narrative Performed At EXAMINATION:XR CHEST 2 VW [...] is noted. 2. Borderline to mild cardiomegaly [id number] Procedure Note Interface, Radiology Results Incoming - 08/04/2018 1:58 PM HIDE WORKER EXAMINATION: XR CHEST 2 VW CLINICAL HISTORY: [...] is noted. 2. Borderline to mild cardiomegaly [id number] Performing Organization Address [facility] Phone Number [employer] [address] [place] [address] * ECG 12 lead (08/04/2018 1:02 PM HIDE WORKER) Ventricular rate 64 [facility] MUSE Atrial rate 64 [facility] M[facility] IN interval 140 [facility] QRSD interval 74 [...] found- Narrative Performed At Performing Organization Address [facility] Phone Number [employer] [address] [place] [address] * Urinalysis screen and microscopy, with reflex to culture (08/04/2018 12:55 PM HIDE WORKER) Specimen site Clean catch [facility] Color, UA Yellow [facility] Appearance, UA Slightly-Cloudy [facility] Specific gravity, UA 1.024 1.001 - 1.035 [facility] pH, UA 5.0 5.0 - 8.5 [facility] Protein, UA Negative Negative [facility] Glucose, UA Negative Negative [facility] Ketones, UA Negative Negative [facility] Bilirubin, UA Negative Negative [facility] Blood, UA Negative Negative [facility] Nitrite, UA Negative Negative [facility] Urobilinogen, UA 2.0 (A) <2.0 [facility] Leukocyte esterase, UA Trace (A) Negative [facility] Epithelial cells, UA Few /HPF [facility] WBC, UA 0-5 0 - 4 /HPF [facility] RBC, UA 0-5 0 - 5 /HPF [facility] Bacteria, UA Trace None seen [facility] Yeast, UA None seen [facility] Yeast with pseudohyphae, None seen [facility] Calcium oxalate crystals, Many [facility] Specimen Urine Performing Organization Address [facility] Phone Number [address] [place] [address] PATHOLOGY AND GENOMIC MEDICINE [address] * Estimated GFR (08/04/2018 12:55 PM HIDE WORKER) Estimated GFR 62 mL/min/1.73 m2 [facility] Comment: [facility] CatergoryUnitsInte rpretation G1 >=90 Normal or high G2 60-89Mildly decreased [id number] Mildly to moderately decreased H6q55-61 Moderately to severely decreased G4 15-29Severely decreased G5 <15Kidney failure The eGFR was calculated using the Chronic Kidney Disease Epidemiology Collaboration (CKD-EPI) equation. Interpretation is based on recommendations of the National Kidney Foundation-Kidney Disease Outcomes Quality Initiative (NKF-KDOQI) published in 2014. Specimen Plasma specimen Performing Organization Address [facility] Phone Number [address] [place] [address] PATHOLOGY AND GENOMIC MEDICINE [address] * Partial thromboplastin time, activated (08/04/2018 12:55 PM HIDE WORKER) PTT 28.5 23.0 - 36.0 sec [facility] Comment: [facility] PTT therapeutic range for unfractionated heparin is 61.0-112.0 seconds which corresponds to Anti-Xa 0.3-0.7 U/ml. Specimen Blood Performing Organization Address City/[facility]/Zipcode Phone Number [address] [place] [address] PATHOLOGY AND GENOMIC MEDICINE [address] * Prothrombin time with INR (08/04/2018 12:55 PM HIDE WORKER) Prothrombin time 12.6 11.5 - 14.5 sec [facility] INR 1.0 [facility] Comment: [facility] The International Normalized Ratio (INR) is a therapeutic monitoring tool for patients who are stable on oral anticoagulant therapy. An INR of 2.0-3.0 is suggested for deep vein thrombosis/pulmonary embolism. Specimen Blood Performing Organization Address [facility] Phone Number [address] [place] [address] PATHOLOGY AND GENOMIC MEDICINE [address] * CBC with platelet and differential (08/04/2018 12:55 PM HIDE WORKER) WBC 6.68 4.50 - 11.00 k/uL [facility] RBC 4.13 (L) 4.20 - 5.50 m/uL [facility] HGB 12.6 12.0 - 16.0 g/dL [facility] HCT 38.8 37.0 - 47.0 % [facility] MCV 93.9 82.0 - 100.0 fL [facility] MCH 30.5 27.0 - 34.0 pg [facility] MCHC 32.5 31.0 - 37.0 g/dL [facility] RDW - SD 50.2 37.0 - 55.0 fL [facility] MPV 10.5 8.8 - 13.2 fL [facility] Platelet count 285 150 - 400 k/uL [facility] Nucleated RBC 0.00 /100 WBC [facility] Neutrophils 54.5 39.0 - 69.0 % [facility] Lymphocytes 35.9 25.0 - 45.0 % [facility] Monocytes 7.6 0.0 - 10.0 % [facility] Eosinophils 1.3 0.0 - 5.0 % [facility] Basophils 0.6 0.0 - 1.0 % [facility] Specimen Blood Performing Organization Address [facility] Phone Number [address] [place] [address] PATHOLOGY AND GENOMIC MEDICINE [address] * Basic metabolic panel (08/04/2018 12:55 PM HIDE WORKER) Sodium 138 135 - 148 mEq/L [facility] Potassium 4.1 3.5 - 5.0 mEq/L [facility] Chloride 100 98 - 112 mEq/L [facility] CO2 28 24 - 31 mEq/L [facility] Anion gap 10@ANIO 7 - 15 mEq/L [facility] BUN 18 8 - 23 mg/dL [facility] Creatinine 0.90 0.50 - 0.90 mg/dL [facility] Glucose 85 65 - 99 mg/dL [facility] Calcium 10.2 8.8 - 10.2 mg/dL [facility] Specimen Plasma specimen Performing Organization Address [facility] Phone Number [address] [place] [address] PATHOLOGY AND GENOMIC MEDICINE [address] * Gram stain (08/04/2018 12:06 PM HIDE WORKER) Gram stain result No WBC's or organisms seen. [facility] Comment: HOSPITAL Specimen Information Specimen Source: Urine Specimen Site: Clean catch Specimen Urine Performing Organization Address City/State/Zipcode Phone Number [facility] DEPARTMENT [address] [place] [address] PATHOLOGY AND GENOMIC MEDICINE [address] * Urine culture (08/04/2018 12:06 PM HIDE WORKER) Urine culture isolate Mixed kwame 10-5 col/cc [facility] Comment: HOSPITAL Specimen Information Specimen Source: Urine Specimen Site: Clean catch Specimen Urine Performing Organization Address City/State/Zipcode Phone Number [facility] DEPARTMENT OF [address] [place] [address] PATHOLOGY AND GENOMIC MEDICINE [facility] [address] [place] [address] HOSPITAL after 11/07/2017 Insurance Payer Benefit Subscriber ID Type Phone Address Plan / Group [employer]NA MEDICARE AETNA xxxxxxxx HMO MEDICARE HMO/PPO FIELD [facility] Advance Directives Patient has advance care planning documents on file. For more information, chloe torres contact: Evan Amaya [address] [place] [address]
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
[2018-11-08] MEDS ORDERED: TRAMADOL HCL 50 MG TAB PO ONE (12:30)
[2018-11-08] MEDS ORDERED: CYCLOBENZAPRINE HCL 10 MG TAB PO ONE (12:30)
[2018-11-09] MEDS ORDERED: LIDOCAINE 5% PATCH TP ONE (09:00)
== END 2018-11-08 13:44 | disposition home or self-care (01) ==
LOC: ER 12:15
DX: M54.5 Low back pain (principal); S39.012A Strain of muscle, fascia and tendon of lower back, initial encounter; G89.29 Other chronic pain; K21.9 Gastro-esophageal reflux disease without esophagitis; Z86.718 Personal history of other venous thrombosis and embolism; Z86.711 Personal history of pulmonary embolism; Z96.641 Presence of right artificial hip joint; Z96.651 Presence of right artificial knee joint
CPT/HCPCS: 99283

== ENCOUNTER 2020-12-10 15:26 | Emergency (ER) | payer MEDICARE, OTHER ==
[~2020-12-10] VITALS: Ht 160 cm; Wt 81.6 kg
[2020-12-10 17:39] LABS: BASOPHILS # (AUTO) 0.1 (0.0-0.1); BASOPHILS % 0.7 % (0.0-1.0); EOSINOPHILS # (AUTO) 0.1 (0.0-0.4); EOSINOPHILS % 0.6 % (0.0-6.0); HEMATOCRIT 37.7 % (34.2-44.1); HEMOGLOBIN 12.1 g/dL (12.0-16.0); LYMPHOCYTES # (AUTO) 2.5 (1.0-3.2); LYMPHOCYTES % 27.8 % (18.0-39.1); MEAN CORPUSCULAR HEMOGLOBIN 30.4 pg (28-32); MEAN CORPUSCULAR HGB CONC 32.1 g/dL (31-35); MEAN CORPUSCULAR VOLUME 94.7 fL (81-99); MONOCYTES # (AUTO) 0.8 (0.2-0.8); MONOCYTES % 8.7 % (4.4-11.3); NEUTROPHILS # (AUTO) 5.5 (2.1-6.9); NEUTROPHILS % 61.9 % (38.7-80.0); PLATELET COUNT 277 x10e3/uL (140-360); RED BLOOD COUNT 3.98 x10e6/uL (3.6-5.1); RED CELL DISTRIBUTION WIDTH 14.8 % (11.7-14.4)
[2020-12-10 17:54] LABS: ALBUMIN 4.1 g/dL (3.5-5.0); ALBUMIN/GLOBULIN RATIO 1.4 (0.8-2.0); ANION GAP 15.6 mmol/L (8-16); CALCIUM 9.3 mg/dL (8.4-10.2); CREATININE, SERUM 1.1 mg/dL (0.57-1.11); POTASSIUM 3.6 mmol/L (3.5-5.1)
[2020-12-10 18:03] LABS: CREATINE KINASE MB 5.9 ng/mL (0-5.0)
[2020-12-10] MEDS ORDERED: IOPAMIDOL 370 MG/ML 200 ML INFUS..BTL INJ ONE (18:14)
[2020-12-10] MEDS ORDERED: SODIUM CHLORIDE 0.9% 100 ML ONE (18:14)
[2020-12-10 19:39] VITALS: BP 118/68
== END 2020-12-10 19:40 | disposition home or self-care (01) ==
LOC: ER 17:17
DX: R42 Dizziness and giddiness (principal); D64.9 Anemia, unspecified; K21.9 Gastro-esophageal reflux disease without esophagitis; Z86.718 Personal history of other venous thrombosis and embolism
CPT/HCPCS: 36415; 70496; 80053; 82550; 82553; 84484; 85025; 99284; J7050; Q9967